=== PATIENT | male | born 1945 | race African-American/Black ===

== ENCOUNTER 2019-08-25 06:15 | Outpatient (CLI) | payer MEDICARE ==
[~2019-08-25] VITALS: Ht 170.2 cm; Wt 84.1 kg
[2019-08-25 06:14] LABS: BASOPHILS 0.3 % (0-2); EOSINOPHILS 1.1 % (0-7); HEMATOCRIT 45.8 % (42.0-54.0); HEMOGLOBIN 15.6 g/dL (13.5-17.5); LYMPHOCYTES 42.6 % (15-50); MCH 27.4 pg (26.0-34.0); MCHC 34.1 g/dL (31.0-37.0); MCV 80.4 fL (80.0-100.0); MONOCYTES 10.2 % (2-11); NEUTROPHILS 45.8 % (40-80); PLATELET COUNT 119 10x3/uL (130-400); RDW 12.9 % (11.5-14.5); WBC 3.7 10x3/uL (4.8-10.8)
[2019-08-25 06:35] VITALS: BP 107/74; Ht 170.2 cm; Wt 84.1 kg
[2019-08-25 06:35] LABS: % SATURATION 26 % (15-55); IRON 73 ug/dl (35-150); TOTAL IRON BIND CAPACITY 274 ug/dl (260-445); UNSAT IRON BIND CAPACITY 201 ug/dl (150-375)
[2019-08-25 06:41] LABS: APTT 30.4 SECONDS (22.8-39.4); INR 1.07 (0.85-1.17); PROTIME 13.4 SECONDS (11.6-15.0)
[2019-08-25] MEDS ORDERED: BAYER CHEWABLE81 MG PO (06:41)
[2019-08-25] MEDS ORDERED: PRALUENT P150 MG/1 M SC (06:42)
[2019-08-25] MEDS ORDERED: NEXIUM40 MG PO (06:42)
[2019-08-25] MEDS ORDERED: COENZYME Q10100 MG PO (06:42)
[2019-08-25] MEDS ORDERED: BACLOFEN10 MG PO (06:42)
[2019-08-25] MEDS ORDERED: COZAAR50 MG PO (06:43)
[2019-08-25] MEDS ORDERED: HYDROCHLOROTH12.5 M1 PO (06:43)
[2019-08-25] MEDS ORDERED: METOPROLOL TART50 MG PO (06:43)
[2019-08-25] MEDS ORDERED: OMEGA-3100 MG PO (06:44)
[2019-08-25] MEDS ORDERED: NITROSTAT0.4 MG SL (06:44)
[2019-08-25] MEDS ORDERED: CARAFATE1 G PO (06:44)
[2019-08-25] MEDS ORDERED: FLOMAX0.4 MG PO (06:44)
[2019-08-25] MEDS ORDERED: TYLENOL ARTHRI650 MG PO (06:45)
[2019-08-25 06:52] LABS: ALBUMIN 3.8 g/dL (3.4-5.0); ANION GAP 9.4 mmol/L (8-16); BILIRUBIN - DIRECT 0.15 mg/dL (0.00-0.30); BILIRUBIN - INDIRECT 0.39 mg/dL (0.00-1.00); BILIRUBIN - TOTAL 0.54 mg/dL (0.2-1.3); CALCIUM 9.2 mg/dL (8.5-10.1); CARBON DIOXIDE 29.2 mmol/L (21.0-32.0); CHOL - HDL RATIO 5.6 ratio (2.3-4.9); CREATININE - SERUM 1.1 mg/dL (0.6-1.3); POTASSIUM - SERUM 3.6 mmol/L (3.5-5.1); PROTEIN - SERUM 8.4 g/dL (6.4-8.2)
--- NOTE | 2019-08-25 10:33 | NUR ---
PT IS RESTING QUIETLY IN BED W/ FAMILY AT BEDSIDE. DENIES PAIN/NEEDS AT THIS TIME. WILL CONTINUE TO MONITOR.
--- NOTE | 2019-08-25 12:37 | NUR ---
DC INSTRUCTIONS GIVEN TO PT/FAMILY. STATE UNDERSTANDING. DC'D IV CATH FULLY INTACT.
--- NOTE | 2019-08-25 12:38 | NUR ---
PT VOIDED IN URINAL 250 ML
--- NOTE | 2019-08-25 13:00 | NUR ---
PT LEFT UNIT VIA WC AT 1259
[2019-08-26 08:10] LABS: HAPTOGLOBIN 139 mg/dL (34-355)
[2019-08-26 10:10] LABS: ANA REFLEX - DIRECT Negative (Negative); HEPATITIS C ANTIBODY <0.1 S/CO RAT (0.0-0.9)
[2019-08-26 11:10] LABS: ANA REFLEX - DIRECT Negative (Negative)
[2019-08-26 13:10] LABS: ALPHA FETOPROTEIN -(TUMOR MRK) 1.8 ng/mL (0.0-8.3)
[2019-08-27 17:08] LABS: MITOCHONDRIAL ANTIBODY <20.0 Units (0.0-20.0); SMOOTH MUSCLE ABS (ACTIN) 9 Units (0-19)
== END 2019-08-25 12:59 | disposition home or self-care (01) ==
LOC: D.SP 06:15 → D.CT 08:30 → D.SP 12:59
PROVIDERS: Radiology Vascular & Interventional Radiology; ATTEND Internal Medicine Gastroenterology
DX: K74.60 Unspecified cirrhosis of liver (principal)

== ENCOUNTER → 2019-09-02 07:36 | Outpatient (CLI) | payer MEDICARE ==
[2019-08-25 06:35] VITALS: BMI 29.0
[~2019-09-02 07:36] MED LIST: BACLOFEN10 MG PO; BAYER CHEWABLE81 MG PO; CARAFATE1 G PO; COENZYME Q10100 MG PO; COZAAR50 MG PO; FLOMAX0.4 MG PO; HYDROCHLOROTH12.5 M1 PO; METOPROLOL TART50 MG PO; NEXIUM40 MG PO; NITROSTAT0.4 MG SL; OMEGA-3100 MG PO; PRALUENT P150 MG/1 M SC; TYLENOL ARTHRI650 MG PO
== END | disposition home or self-care (01) ==
LOC: D.LAB 07:36
PROVIDERS: ATTEND Internal Medicine Gastroenterology
DX: R79.89 Other specified abnormal findings of blood chemistry (principal)

== ENCOUNTER → 2019-09-14 09:57 | Outpatient (CLI) | payer MEDICARE ==
[2019-08-25 06:35] VITALS: BMI 29.0
== END | disposition home or self-care (01) ==
LOC: D.CT 09:57
PROVIDERS: ATTEND Internal Medicine Gastroenterology
DX: E27.9 Disorder of adrenal gland, unspecified (principal); R93.5 Abnormal findings on diagnostic imaging of other abdominal regions, including retroperitoneum; R68.89 Other general symptoms and signs

== ENCOUNTER 2019-10-03 11:43 | Day surgery (SDC) | payer MEDICARE, OTHER ==
[~2019-10-03] VITALS: Ht 170.2 cm; Wt 84.1 kg
[2019-10-03 12:27] LABS: ALBUMIN 3.8 g/dL (3.4-5.0); BILIRUBIN - DIRECT 0.13 mg/dL (0.00-0.30); BILIRUBIN - INDIRECT 0.57 mg/dL (0.00-1.00); BILIRUBIN - TOTAL 0.7 mg/dL (0.2-1.3); PROTEIN - SERUM 8.4 g/dL (6.4-8.2)
[2019-10-03 12:28] LABS: BASOPHILS 0.3 % (0-2); EOSINOPHILS 1.3 % (0-7); HEMATOCRIT 44.2 % (42.0-54.0); HEMOGLOBIN 15.1 g/dL (13.5-17.5); LYMPHOCYTES 49.3 % (15-50); MCHC 34.2 g/dL (31.0-37.0); MCV 78.9 fL (80.0-100.0); MONOCYTES 10.5 % (2-11); NEUTROPHILS 38.6 % (40-80); PLATELET COUNT 104 10x3/uL (130-400); RDW 13.5 % (11.5-14.5); WBC 3.8 10x3/uL (4.8-10.8)
[2019-10-03 12:30] LABS: INR 0.99 (0.85-1.17)
[2019-10-03] MEDS ORDERED: ZETIA10 MG PO (12:38)
[2019-10-03 12:42] VITALS: BP 120/76; Ht 170.2 cm; Wt 84.1 kg
--- NOTE | 2019-10-03 15:00 | NUR ---
PT DC INSTRUCTIONS REVIEWED AT THIS TIME, PT AND FAMILY VERBALIZE UNDERSTANDING. PT IV REMOVED AT THIS TIME, INTACT, NO REDNESS OR SWELLING NOTED AT SITE.
--- NOTE | 2019-10-03 15:15 | NUR ---
PT LEAVING OPS AT THIS TIME VIA WC, NAD NOTED AT THIS TIME.
--- NOTE | 2019-10-04 11:34 | OP ---
PATIENT NAME: VIELKA DAWSON MEDICAL RECORD: [id number] :47 LOCATION:[facility] ADMISSION DATE: SURGEON: SOLITARIO ROSA DO DATE OF OPERATION: 10/03/2019 PROCEDURE: EGD with biopsies and snare polypectomy. INDICATIONS FOR PROCEDURE: GERD and epigastric pain. SCOPE: Olympus video gastroscope. MEDICATIONS: Propofol 300 mg IV per anesthesia in 1.5 mL of epinephrine injected during the procedure. This was diluted 1:10,000 epinephrine used for hemostasis maneuvers. COMPLICATIONS: None immediate. FINDINGS: Informed consent was given. The patient was made comfortable with the above medication. After reaching an adequate level of sedation by slow IV push, the patient was placed on his left side. The endoscope was advanced under direct visualization through the mouth to the second portion of the duodenum with ease. The esophagus appeared normal down to the GE junction. At the GE junction, there was evidence of LA class C, reflux-induced esophagitis. The endoscope was advanced beyond the GE junction into the stomach and retroflexed to view the cardia and fundus. Throughout the entire cardia and fundus as well as the body of the stomach, there was evidence of gastritis characterized by enlarged rugal folds, congestion, and lacy pattern vasculature throughout the mucosa. There were multiple fundic gland type polyps scattered throughout these areas. Cold forceps, biopsies were taken from the fundus and proximal stomach. The endoscope was advanced further down into the antrum and prepyloric region. There was a transition of the inflamed mucosa down to erythematous and granular mucosa in the antrum and prepyloric region. Cold forceps, biopsies were taken from the antrum and prepylorus as well as the fundus for histopathology and to rule out the presence of H. pylori. In the antrum, there was an enlarged hemorrhagic appearing polyp, which measured approximately 1.5-2 cm in size. It was removed using snare polypectomy after a mucosal lift with diluted 1:10,000 epinephrine for a pillow. The polyp was removed successfully. After removal, there was some bleeding from the site. For hemostasis, two endoclips were placed over the bleeding site successfully. The endoscope was advanced beyond the pylorus into the duodenum, which appeared normal down to the second portion. The endoscope was then withdrawn from the patient. The patient tolerated the procedure well and there were no complications. IMPRESSION: 1. LA class C, reflux-induced esophagitis. 2. Gastritis. 3. Gastric polyps. 4. Large antral gastric polyp was removed using EMR technique with a diluted epinephrine submucosal injection followed by hot snare polypectomy. PLAN AND RECOMMENDATIONS: 1. Discharge home when recovery parameters are met. 2. Follow up biopsy specimen results. 3. GERD diet and reflux precautions. 4. Continue current medications including once daily to b.i.d. PPI 40 mg OPERATIVE REPORT [id number] VIELKA DAWSON equivalent. 5. Carafate as needed. 6. Follow up in GI clinic as scheduled. 7. There was no evidence or endoscopic findings of esophageal varices or gastric varices on today's examination. I have reviewed the patient's liver biopsy and it does not appear consistent with cirrhosis. 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 TRANSINT:[id number] Voice Confirmation ID: [id number] DOCUMENT ID: [id number] SOLITARIO ROSA DO at 1134 CC: [id number] DICTATION DATE: 10/03/19 1424 [employer]OUD SOFTWARE ENGINEER: 10/03/19 1845 [facility] 10/03/19 [facility] [address] [place] [address]
== END 2019-10-03 15:15 | disposition home or self-care (01) ==
LOC: D.OPS 11:43
PROVIDERS: ATTEND Internal Medicine Gastroenterology
DX: K21.9 Gastro-esophageal reflux disease without esophagitis (principal); R10.13 Epigastric pain; I86.4 Gastric varices; I85.00 Esophageal varices without bleeding; Z86.010 Personal history of colon polyps; K74.60 Unspecified cirrhosis of liver

== ENCOUNTER → 2019-12-02 06:56 | Outpatient (CLI) | payer MEDICARE ==
[2019-10-03 12:42] VITALS: BMI 29.0
[~2019-12-02 06:56] MED LIST changes: +ZETIA10 MG PO
== END | disposition home or self-care (01) ==
LOC: D.LAB 06:56
PROVIDERS: ATTEND Internal Medicine Gastroenterology
DX: D64.9 Anemia, unspecified (principal)